=== PATIENT | male | born 2000 | race Caucasian/White ===

== ENCOUNTER 2018-09-01 13:11 | Emergency (ER) | payer OTHER ==
[~2018-09-01] VITALS: Ht 175.3 cm; Wt 68.0 kg
== END 2018-09-01 14:35 | disposition home or self-care (01) ==
LOC: ER 13:11
DX: S61.411D Laceration without foreign body of right hand, subsequent encounter (principal); R20.2 Paresthesia of skin; W26.0XXD Contact with knife, subsequent encounter
CPT/HCPCS: 99282

== ENCOUNTER → 2020-07-21 | Outpatient (CLI) | payer OTHER ==
[2020-07-24 01:06] LABS: CHLAMYDIA TRACHOMATIS, NAA Negative (Negative)
== END | disposition home or self-care (01) ==
LOC: LAB SHORT 18:17
PROVIDERS: Physician Assistant Surgical
DX: N50.819 Testicular pain, unspecified (principal)
CPT/HCPCS: 87491; 87591

== ENCOUNTER 2020-08-25 10:44 | Emergency (ER) | payer OTHER ==
[~2020-08-25] VITALS: Ht 167.6 cm; Wt 72.6 kg
[2020-08-25] MEDS ORDERED: ERYT1OIN LEFTEYE (11:31)
== END 2020-08-25 12:13 | disposition home or self-care (01) ==
LOC: ER 10:44
DX: T15.82XA Foreign body in other and multiple parts of external eye, left eye, initial encounter (principal); F17.200 Nicotine dependence, unspecified, uncomplicated
CPT/HCPCS: 65222; 99283-25; A9270

== ENCOUNTER 2021-02-04 23:18 | Emergency (ER) | payer OTHER ==
[~2021-02-04] VITALS: Ht 167.6 cm; Wt 72.6 kg
[~2021-02-04 23:18] MED LIST: ERYT1OIN LEFTEYE
[2021-02-05] MEDS ORDERED: TIMDOROPSO LEFTEYE (03:35)
[2021-02-05] MEDS ORDERED: XALATAN2.5 ML LEFTEYE (03:35)
[2021-02-05] MEDS ORDERED: Alphagan P5 ML BOTHEYES (03:35)
== END 2021-02-05 03:45 | disposition home or self-care (01) ==
LOC: ER 23:18
DX: S02.32XA Fracture of orbital floor, left side, initial encounter for closed fracture (principal); S02.2XXA Fracture of nasal bones, initial encounter for closed fracture; Y04.8XXA Assault by other bodily force, initial encounter; Y93.72 Activity, wrestling
CPT/HCPCS: 70450; 70486; 99283-25; A9270